=== PATIENT | male | born 1970 | race Caucasian/White ===

== ENCOUNTER 2023-12-01 08:59 | Emergency (ER) | payer MEDICAID, OTHER ==
[~2023-12-01] VITALS: Ht 177.8 cm; Wt 69.4 kg
[2023-12-01 09:12] VITALS: BP 138/90; TEMP 98; O2SAT 99
[2023-12-01] MEDS ORDERED: ALBU18HF2 INH (09:58)
== END 2023-12-01 10:49 | disposition home or self-care (01) ==
LOC: ER 09:04
DX: Z76.0 Encounter for issue of repeat prescription (principal); J45.909 Unspecified asthma, uncomplicated; I10 Essential (primary) hypertension; Z91.048 Other nonmedicinal substance allergy status; Z60.2 Problems related to living alone

== ENCOUNTER 2024-04-06 23:33 | Emergency (ER) | payer OTHER ==
[~2024-04-06] VITALS: Ht 177.8 cm; Wt 77.1 kg
[~2024-04-06 23:33] MED LIST: ALBU18HF2 INH
[2024-04-07 02:19] VITALS: BP 147/89; TEMP 98.2; O2SAT 96
== END 2024-04-07 02:35 | disposition home or self-care (01) ==
LOC: ER 23:36
DX: F19.10 Other psychoactive substance abuse, uncomplicated (principal); I10 Essential (primary) hypertension; J45.909 Unspecified asthma, uncomplicated; Z79.899 Other long term (current) drug therapy; Z60.2 Problems related to living alone; Z59.00 Homelessness unspecified